=== PATIENT | male | born 1980 | race Caucasian/White ===

== ENCOUNTER 2018-12-15 14:40 | Emergency (ER) | payer MEDICAID ==
[~2018-12-15] VITALS: Ht 185.4 cm; Wt 148.0 kg
[2018-12-15 14:58] VITALS: BP 185/98
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
[2018-12-15] MEDS ORDERED: CYCL-1 PO (15:27)
[2018-12-15] MEDS ORDERED: NAPR-56 PO (15:27)
== END 2018-12-15 15:40 | disposition home or self-care (01) ==
LOC: ER 14:41
DX: S13.4XXA Sprain of ligaments of cervical spine, initial encounter (principal); M62.830 Muscle spasm of back; Z79.899 Other long term (current) drug therapy; V87.7XXA Person injured in collision between other specified motor vehicles (traffic), initial encounter; Y93.89 Activity, other specified; Y92.488 Other paved roadways as the place of occurrence of the external cause; Y99.8 Other external cause status
CPT/HCPCS: 99283